=== PATIENT | female | born 1950 | race Caucasian/White ===

== ENCOUNTER 2016-05-20 11:39 | Emergency (ER) | payer MEDICARE, OTHER ==
[2016-05-20 13:33] VITALS: BP 154/83
--- NOTE | 2016-05-20 14:05 | ED Physician Documentation ---
Sore Throat/Dental Pain - HISTORIAN Historian: patient - HPI Stated Complaint: [facility] Chief Complaint: Sore Throat Additional Information: muscle aches, cough, low grade fever, nausea Onset: days ago (1) Context: Possible Infection Associated Symptoms: fever, chills, sore throat, moderate, runny nose, congestion, cough, other (nuasea) Worsened By: nothing Further Comments: no - ROS CONST: no problems CVS/RESP: other (cough) GI/: nausea. denies: problems urinating, vomiting MS/SKIN/LYMPH: muscle aches NEURO/PSYCH: none - PAST HX Past History: other (fibromyalgia) Other History: none Immunizations: referred to PCP Allergies/Adverse Reactions: Allergies Allergy/AdvReac Type Severity Reaction Status Date / Time morphine sulfate Allergy Intermediate Verified 05/20/16 12:01 [From MS Contin] fentanyl [From Duragesic] Allergy Unknown Verified 05/20/16 12:01 Penicillins Allergy Unknown Verified 05/20/16 12:01 Sulfa (Sulfonamide Allergy Unknown Verified 05/20/16 12:01 Antibiotics) Home Medications: Ambulatory Orders Medication Instructions Recorded Duloxetine HCl [Cymbalta] 60 mg PO HS 05/20/16 Tizanidine HCl [Zanaflex] 4 mg PO DIRECTED PRN 05/20/16 Zolpidem Tartrate [Ambien] 10 mg PO HS PRN 05/20/16 oxyCODONE HCL/ACETAMINOPHEN 1 each PO Q4 PRN 05/20/16 [Percocet 5-325 mg Tablet] - SOCIAL HX Smoking History: secondhand, cigarettes Alcohol Use: none Drug Use: none - FAMILY HX Family History: No - VITAL SIGNS Vital Signs: Vital Signs Temp Pulse Resp BP Pulse Ox 98.1 F 92 H 18 154/83 98 05/20/16 13:29 05/20/16 13:29 05/20/16 13:29 05/20/16 13:29 05/20/16 13:29 - REVIEWED ASSESSMENTS Nursing Assessment Reviewed: Yes Vitals Reviewed: Yes Progress - Results/Orders Results/Orders: strep/flu a and b - Progress Progress: pt. stable entire time in er Critical Care Note - Critical Care Note Total Time (mins): 0 ED Results Lab/Radiology - Lab Results Lab Results: Lab Results 05/20/16 05/20/16 13:00 12:05 Influenza Type A Ag Negative (NEGATIVE) Influenza Type B Ag Negative (NEGATIVE) Group A Strep Screen Negative (NEGATIVE) - Radiology Radiology Impressions: none ordered - Orders Orders: ED Orders Category Date Time Status INFLUENZA A&B Stat Lab 05/20/16 13:00 Completed Rapid Strep [GRP A STREP SCREEN] Stat Lab 05/20/16 12:05 Completed THROAT CULTURE Stat Lab 05/20/16 12:05 Received Sore throat Physical Exam - EXAM General Appearance: alert, mild distress Head/Neck: head nml inspection, trachea midline, no lymphadenopathy, thyroid nml. No: pain over sinuses Eyes: eyes nml inspection, PERRL. No: pain of sinuses Mouth/Throat: lips nml, gums nml, voice nml, no drooling, no air way problems, no thrush, pharyngeal erythema Ear/Nose: nml inspection. No: TM erythema Respiratory: no resp. distress, breath sounds nml CVS: reg. rate & rhythm, heart sounds nml Abdomen: soft, no organomegaly, normal bowel sounds, no abdominal bruit, no distension, non-tender Extremities: non-tender, nml ROM Skin: warm/dry, normal color Neuro/Psych: oriented x3, mood/affect nml Discharge Clincal Impression: Upper respiratory infection Qualifiers: URI type: unspecified URI Qualified Code(s): J06.9 - Acute upper respiratory infection, unspecified Referrals: July Contreras MD [Primary Care Provider] - 2 Days Home Medications: Ambulatory Orders Duloxetine HCl [Cymbalta] 60 mg PO HS 05/20/16 Tizanidine HCl [Zanaflex] 4 mg PO DIRECTED PRN 05/20/16 Zolpidem Tartrate [Ambien] 10 mg PO HS PRN 05/20/16 oxyCODONE HCL/ACETAMINOPHEN [Percocet 5-325 mg Tablet] 1 each PO Q4 PRN Comments: pt. discharged with a z-pack with one refill Condition: Stable Disposition: 01 HOME, SELF-CARE Decision to Admit: NO Decision Time: 13:20
== END 2016-05-20 13:20 | disposition home or self-care (01) ==
LOC: ED 11:39
DX: J06.9 Acute upper respiratory infection, unspecified (principal)
CPT/HCPCS: 87070; 87400; 87880; 99282; 99283

== ENCOUNTER 2016-11-12 20:30 | Emergency (ER) | payer MEDICARE, OTHER ==
[2016-11-12] MEDS ORDERED: diphenhydrAMINE HCL 50 MG/ML VIAL IM ONE (21:00)
[2016-11-12] MEDS ORDERED: methylPREDNISolone SOD SUCC 125 MG/2 ML VIAL IM ONE (21:00)
--- NOTE | 2016-11-12 21:02 | ED Physician Documentation ---
Skin Rash - HISTORIAN Historian: patient - HPI Stated Complaint: rash Chief Complaint: Skin Rash Additional Information: cleaning weeds in yard 3 days ago and has developed a pruritic rash spreading on arms trunk neck face Onset: days ago Timing: still present Duration: worse Location: generalized Quality: itchy Identified Cause?: Yes When Did Symptoms Start: 11/09/16 Where: home Context: Medication Exposure: none Context: Food Exposure: none Context: Other Exposure: poison darrell, poison oak - ROS CONST: none CVS/RESP: none EYES/ENT: none GI/: none MS/SKIN/LYMPH: none NEURO/PSYCH: none - PAST HX Past History: none Other History: none Surgeries/Procedures: No Immunizations: UTD Allergies/Adverse Reactions: Allergies Allergy/AdvReac Type Severity Reaction Status Date / Time morphine sulfate Allergy Intermediate Verified 05/20/16 12:01 [From MS Contin] fentanyl [From Duragesic] Allergy Unknown Verified 05/20/16 12:01 Penicillins Allergy Unknown Verified 05/20/16 12:01 Sulfa (Sulfonamide Allergy Unknown Verified 05/20/16 12:01 Antibiotics) Home Medications: Ambulatory Orders Medication Instructions Recorded Duloxetine HCl [Cymbalta] 60 mg PO HS 05/20/16 Tizanidine HCl [Zanaflex] 4 mg PO DIRECTED PRN 05/20/16 Zolpidem Tartrate [Ambien] 10 mg PO HS PRN 05/20/16 oxyCODONE HCL/ACETAMINOPHEN 1 each PO Q4 PRN 05/20/16 [Percocet 5-325 mg Tablet] - SOCIAL HX Smoking History: non-smoker Alcohol Use: none Drug Use: none - FAMILY HX Family History: none - VITAL SIGNS Vital Signs: Vital Signs Temp Pulse Resp BP Pulse Ox 98.1 F 86 20 123/77 99 11/12/16 20:31 11/12/16 20:31 11/12/16 20:31 11/12/16 20:31 11/12/16 20:31 - REVIEWED ASSESSMENTS Nursing Assessment Reviewed: Yes Vitals Reviewed: Yes ED Results Lab/Radiology - Orders Orders: ED Orders Category Date Time Status diphenhydrAMINE HCL [Benadryl] Med 11/12/16 21:00 Once 25 mg IM NOW ONE methylPREDNISolone SOD SUCC [Solu-MEDROL] Med 11/12/16 21:00 Once 125 mg IM NOW ONE Skin Rash Physical Exam - EXAM General Appearance: no acute distress, alert Skin: lesion, plaque, other (raised red rash) Location: face, anterior neck, posterior neck, trunk, abdomen, extremities Character: asymmetric, maculopapular, patchy, linear, urticarial Extremities: non-tender EENT: eyes nml inspection, lips nml, gums nml, pharynx nml. No: pharyngeal swelling Neck: no swelling Respiratory: no resp distress Abdomen: non-tender Neuro/Psych: oriented x3 Discharge Clincal Impression: Rhus dermatitis Referrals: July Contreras MD [Primary Care Provider] - 2 Days Home Medications: Ambulatory Orders Duloxetine HCl [Cymbalta] 60 mg PO HS 05/20/16 Tizanidine HCl [Zanaflex] 4 mg PO DIRECTED PRN 05/20/16 Zolpidem Tartrate [Ambien] 10 mg PO HS PRN 05/20/16 oxyCODONE HCL/ACETAMINOPHEN [Percocet 5-325 mg Tablet] 1 each PO Q4 PRN Disposition: 01 HOME, SELF-CARE Decision to Admit: NO Date of Decison to Admit: 11/12/16 Decision Time: 21:05
[2016-11-12 22:08] VITALS: BP 125/74
== END 2016-11-12 21:45 | disposition home or self-care (01) ==
LOC: ED 20:30
DX: L23.7 Allergic contact dermatitis due to plants, except food (principal)
CPT/HCPCS: J1200; J2930; 96372; 99283